=== PATIENT | female | born 1935 | race Caucasian/White ===

== ENCOUNTER 2019-05-18 15:42 | Emergency (ER) | payer MEDICARE ==
[2019-05-18] MEDS ORDERED: Catapres 0.1 MG PO ONE (16:50)
[2019-05-18] MEDS ORDERED: Catapres 0.1 MG ONE (16:53)
--- NOTE | 2019-05-18 16:53 | ERPHSYRPT ---
- History of Present Illness Time Seen by Provider: 05/18/19 16:42 Source: patient, family Exam Limitations: no limitations Patient Subjective Stated Complaint: STATES BEGAN HAVING HIGH BLOOD PRESSURE THIS WEEK. WAS STARTED ON [place] YESTERDAY. STATES IS STILL ELEVATED. ALSO HAVING WEAK FEELING IN BOTH ARMS. Triage Nursing Assessment: AMUBLATED TO ROOM PER SELF. SKIN W/D, COLOR NORMAL, RESP EASY. DENIES ANY DIZZINESS OR HEADACHE. HEATH. A/O TIMES FOUR. CLAUDIO WITHOUT DIFFICULTY. Physician History: 83 years old female presented in the ER with chief complaint of uncontrolled hypertension. Patient reports having high blood pressure for one week and yesterday was started on losartan 25 mg and today her blood pressure was still in the 160s. Patient reports prior to arrival she was having some funny feeling in her both arms until she arrived in the ER and it does improve. She denies any chest pain palpitations or shortness of breath. Denies any headache numbness tingling or focal weakness. No blurry vision. Denies any issues with balance. Timing/Duration: today, constant, gradual onset, improved Severity: mild Modifying Factors: Improves With: nothing Associated Symptoms: denies symptoms Allergies/Adverse Reactions: No Known Drug Allergies Allergy (Unverified 05/18/19 16:16) Home Medications: Losartan Potassium [Cozaar] 25 mg PO DAILY 05/18/19 [History] Hx Tetanus, Diphtheria Vaccination/Date Given: No Hx Influenza Vaccination/Date Given: No Hx Pneumococcal Vaccination/Date Given: No - Review of Systems Constitutional: No Symptoms Eyes: No Symptoms Ears, Nose, & Throat: No Symptoms Respiratory: No Symptoms Cardiac: No Symptoms Abdominal/Gastrointestinal: No Symptoms Genitourinary Symptoms: No Symptoms Musculoskeletal: No Symptoms Skin: No Symptoms Neurological: No Symptoms Psychological: No Symptoms Endocrine: No Symptoms Hematologic/Lymphatic: No Symptoms Immunological/Allergic: No Symptoms - Past Medical History Pertinent Past Medical History: Yes Cardiac History: Hypertension - Past Surgical History Past Surgical History: Yes Musculoskeletal: Orthopedic Surgery Other Surgical History: ANKLE - Social History Smoking Status: Never smoker Exposure to second hand smoke: No Drug Use: none Patient Lives Alone: No - Female History Hx Now: No - Nursing Vital Signs Nursing Vital Signs: Initial Vital Signs Temperature 97.8 F 05/18/19 16:04 Pulse Rate 94 H 05/18/19 16:04 Respiratory Rate 18 05/18/19 16:04 Blood Pressure 191/102 05/18/19 16:04 O2 Sat by Pulse Oximetry 97 05/18/19 16:04 Pain Scale Pain Intensity 0 - Physical Exam General Appearance: no apparent distress Eye Exam: PERRL/EOMI, eyes nml inspection Ears, Nose, Throat Exam: normal ENT inspection, TMs normal, pharynx normal Neck Exam: normal inspection, non-tender, supple, full range of motion Respiratory Exam: normal breath sounds, lungs clear, respiratory distress Cardiovascular Exam: regular rate/rhythm, normal heart sounds, normal peripheral pulses Gastrointestinal/Abdomen Exam: soft, normal bowel sounds, No distention Extremity Exam: normal inspection Neurologic Exam: alert, oriented x 3, cooperative, 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, normal mood/affect Skin Exam: normal color, warm SpO2 Interpretation: normal SpO2: 97 O2 Delivery: Room Air - Course Nursing assessment & vital signs reviewed: Yes EKG Interpreted by Me: RATE ([id number]), Sinus Rhythm, NORMAL AXIS, NORMAL INTERVALS, NORMAL QRS, Q-wave (inf leads) Ordered Tests: Active Orders 24 hr Category Date Time Status Soap Chipper STAT Care 05/18/19 16:49 Active EKG-ER Only STAT Care 05/18/19 16:48 Active CHEST 1 VIEW (PORTABLE) Stat Exams 05/18/19 16:48 Taken CBC W DIFF Stat Lab 05/18/19 17:00 Completed CMP Stat Lab 05/18/19 17:00 Completed TROPONIN Q3H Lab 05/18/19 17:00 Completed TROPONIN Q3H Lab 05/18/19 20:00 Ordered TROPONIN Q3H Lab 05/18/19 23:00 Ordered TROPONIN Q3H Lab 05/19/19 02:00 Ordered TROPONIN Q3H Lab 05/19/19 05:00 Ordered UA W/RFX UR CULTURE Stat Lab 05/18/19 17:02 Completed Medication Summary Discontinued Medications Generic Name Dose Route Start Last Admin Trade Name Freq PRN Reason Stop Dose Admin Clonidine 0.1 mg 05/18/19 16:50 05/18/19 16:56 Catapres 0.1 Mg PO 05/18/19 16:51 0.1 mg STAT ONE Administration Clonidine Confirm 05/18/19 16:53 Catapres 0.1 Mg Administered 05/18/19 16:54 Dose 0.1 mg .ROUTE .STK-MED ONE Lab/Rad Data: Laboratory Result Diagrams 05/18/19 17:00 05/18/19 17:00 Laboratory Results 05/18/19 05/18/19 05/18/19 Range/Units 17:02 17:00 17:00 WBC (4.0-10.5) K/mm3 RBC (4.1-5.4) M/mm3 Hgb (12.0-16.0) gm/dl Hct (35-47) % MCV (78-100) fl MCH (26-32) pg MCHC (32-36) g/dl RDW (11.5-14.0) % Plt Count (150-450) K/mm3 MPV (7.5-11.0) fl Gran % (36.0-66.0) % Eos # (Auto) (0-0.5) Absolute Lymphs (auto) (1.0-4.6) Absolute Monos (auto) (0.0-1.3) Lymphocytes % (24.0-44.0) % Monocytes % (0.0-12.0) % Eosinophils % (0.00-5.0) % Basophils % (0.0-0.4) % Absolute Granulocytes (1.4-6.9) Basophils # (0-0.4) Sodium 140 (137-145) mmol/L Potassium 4.0 (3.5-5.1) mmol/L Chloride 104 (98-107) mmol/L Carbon Dioxide 27 (22-30) mmol/L Anion Gap 13.0 (5-15) MEQ/L BUN 18 H (7-17) mg/dL Creatinine 0.77 (0.52-1.04) mg/dL Estimated GFR > 60.0 ML/MIN Glucose 104 (74-106) mg/dL Calcium 9.6 (8.4-10.2) mg/dL Total Bilirubin 0.50 (0.2-1.3) mg/dL AST 26 (14-36) U/L ALT 12 (0-35) U/L Alkaline Phosphatase 97 (38-126) U/L Troponin I < 0.012 (0.000-0.034) ng/mL Serum Total Protein 7.7 (6.3-8.2) g/dL Albumin 4.3 (3.5-5.0) g/dL Urine Color STRAW (YELLOW) Urine Appearance CLEAR (CLEAR) Urine pH 7.0 (5-6) Ur Specific [place] 1.005 (1.005-1.025) Urine Protein NEGATIVE (Negative) Urine Ketones NEGATIVE (NEGATIVE) Urine Blood NEGATIVE (0-5) Zach/ul Urine Nitrite NEGATIVE (NEGATIVE) Urine Bilirubin NEGATIVE (NEGATIVE) Urine Urobilinogen NEGATIVE (0-1) mg/dL Ur Leukocyte Esterase SMALL (NEGATIVE) Urine WBC (Auto) 3-5 (0-5) /HPF Urine RBC (Auto) 0-2 (0-2) /HPF U Epithel Cells (Auto) RARE (FEW) /HPF Urine Bacteria (Auto) NONE (NEGATIVE) /HPF Urine Mucus (Auto) SLIGHT (NEGATIVE) /HPF Urine Culture Reflexed NO (NO) Urine Glucose NEGATIVE (NEGATIVE) mg/dL 05/18/19 Range/Units 17:00 WBC 5.6 (4.0-10.5) K/mm3 RBC 4.66 (4.1-5.4) M/mm3 Hgb 13.9 (12.0-16.0) gm/dl Hct 41.3 (35-47) % MCV 88.6 (78-100) fl MCH 29.8 (26-32) pg MCHC 33.7 (32-36) g/dl RDW 13.5 (11.5-14.0) % Plt Count 256 (150-450) K/mm3 MPV 9.5 (7.5-11.0) fl Gran % 63.4 (36.0-66.0) % Eos # (Auto) 0.05 (0-0.5) Absolute Lymphs (auto) 1.55 (1.0-4.6) Absolute Monos (auto) 0.43 (0.0-1.3) Lymphocytes % 27.6 (24.0-44.0) % Monocytes % 7.7 (0.0-12.0) % Eosinophils % 0.9 (0.00-5.0) % Basophils % 0.4 (0.0-0.4) % Absolute Granulocytes 3.56 (1.4-6.9) Basophils # 0.02 (0-0.4) Sodium (137-145) mmol/L Potassium (3.5-5.1) mmol/L Chloride (98-107) mmol/L Carbon Dioxide (22-30) mmol/L Anion Gap (5-15) MEQ/L BUN (7-17) mg/dL Creatinine (0.52-1.04) mg/dL Estimated GFR ML/MIN Glucose (74-106) mg/dL Calcium (8.4-10.2) mg/dL Total Bilirubin (0.2-1.3) mg/dL AST (14-36) U/L ALT (0-35) U/L Alkaline Phosphatase (38-126) U/L Troponin I (0.000-0.034) ng/mL Serum Total Protein (6.3-8.2) g/dL Albumin (3.5-5.0) g/dL Urine Color (YELLOW) Urine Appearance (CLEAR) Urine pH (5-6) Ur Specific [place] (1.005-1.025) Urine Protein (Negative) Urine Ketones (NEGATIVE) Urine Blood (0-5) Zach/ul Urine Nitrite (NEGATIVE) Urine Bilirubin (NEGATIVE) Urine Urobilinogen (0-1) mg/dL Ur Leukocyte Esterase (NEGATIVE) Urine WBC (Auto) (0-5) /HPF Urine RBC (Auto) (0-2) /HPF U Epithel Cells (Auto) (FEW) /HPF Urine Bacteria (Auto) (NEGATIVE) /HPF Urine Mucus (Auto) (NEGATIVE) /HPF Urine Culture Reflexed (NO) Urine Glucose (NEGATIVE) mg/dL - Progress Progress: improved, re-examined Progress Note: 83 years old is evaluated in the ER for elevated blood pressure and funny feeling in her both arms which was improved prior to arrival in the ER. She is given 0.1 mg oral clonidine and her blood pressure is improved. She does not have any chest pain palpitations or shortness of breath. Negative neuro exam. Chest x-ray did not show any acute findings. EKG did not show any acute ischemic changes and negative troponins. Unremarkable chemistries. Unremarkable urine. Patient feeling better. I have advised her to continue with the same dose of losartan which she was started yesterday as it is too early to change or increase the dose. I would give her clonidine to take as needed Discussed with patient about symptoms/signs of worsening needed return to ER but she seemed understanding. Stable for discharge. 05/18/19 19:14 05/18/19 19:20 Counseled pt/family regarding: lab results, diagnosis, need for follow-up (a) - Departure Departure Disposition: Home Clinical Impression: Hypertension, uncontrolled Condition: Good Critical Care Time: No Referrals: FIDEL MARTINEZ MD [Primary Care Provider] - Follow Up with PCP/3 days Instructions: Malignant Hypertension (DC) Additional Instructions: continue with current meds for HTN. regular monitoring and keep a log and outpatient follow up with PCP. Return to ER for any worsening BP/cHEST PAIN / PALPITATIONS OR SHORTNESS OF BREATH.take clonidine only as needed if blood pressure is more than 170 systolic. Do not take more than once in 12 hours. Prescriptions: Clonidine HCl 0.1 mg [Catapres 0.1 MG] 0.1 mg PO Q12H PRN PRN 10 Days #10 tablet PRN Reason: Hypertension
[2019-05-18 17:15] LABS: Absolute Neutrophil Ct (ANC) 3.56 (1.4-6.9); BASOPHIL % 0.4 % (0.0-0.4); Basophil (Absolute #) 0.02 (0-0.4); Eosinophil % 0.9 % (0.00-5.0); Eosinophil (Absolute #) 0.05 (0-0.5); Hematocrit 41.3 % (35-47); Hemoglobin 13.9 gm/dl (12.0-16.0); Lymphocyte (Absolute #) 1.55 (1.0-4.6); Lymphocytes % 27.6 % (24.0-44.0); Mean Cell Volume 88.6 fl (78-100); Mean Corpuscular Hemoglobin 29.8 pg (26-32); Mean Corpuscular Hgb Concent. 33.7 g/dl (32-36); Mean Platelet Volume 9.5 fl (7.5-11.0); Monocyte (Absolute #) 0.43 (0.0-1.3); Monocytes % 7.7 % (0.0-12.0); Neutrophil % 63.4 % (36.0-66.0); Platelet Count 256 K/mm3 (150-450); Red Blood Count 4.66 M/mm3 (4.1-5.4); Red Cell Distribution Width 13.5 % (11.5-14.0); White Blood Count 5.6 K/mm3 (4.0-10.5)
[2019-05-18 17:35] LABS: Appearance CLEAR (CLEAR); Bilirubin NEGATIVE (NEGATIVE); Blood NEGATIVE Ery/ul (0-5); Epithelial Cells RARE /HPF (FEW); Glucose NEGATIVE (NEGATIVE); Ketones NEGATIVE (NEGATIVE); Leukocyte Esterase SMALL (NEGATIVE); Mucus SLIGHT /HPF (NEGATIVE); Nitrite NEGATIVE (NEGATIVE); Protein,Urine Dip NEGATIVE (Negative); RBC 0-2 /HPF (0-2); Specific Gravity 1.005 (1.005-1.025); Urobilinogen NEGATIVE mg/dL (0-1)
[2019-05-18 17:39] LABS: ALBUMIN 4.3 g/dL (3.5-5.0); ALKALINE PHOSPHATASE 97 U/L (38-126); BLOOD UREA NITROGEN 18 mg/dL (7-17); CHLORIDE 104 mmol/L (98-107); Calcium 9.6 mg/dL (8.4-10.2); Carbon Dioxide 27 mmol/L (22-30); Creatinine 1 0.77 mg/dL (0.52-1.04); Glucose 104 mg/dL (74-106); SGOT/AST 26 U/L (14-36); SGPT/ALT 12 U/L (0-35); SODIUM 140 mmol/L (137-145); Total Protein 7.7 g/dL (6.3-8.2)
[2019-05-18 19:01] VITALS: BP 151/90; PULSE 88
[2019-05-18 19:14] VITALS: O2SAT 97
--- NOTE | 2019-05-18 22:46 | XRAY ---
Indication: Uncontrolled hypertension. Comparison: None Portable chest demonstrates minimal left base fibrosis/scarring. No focal infiltrate, consolidation, or large effusion. Heart is not enlarged. Bony thorax intact with mild osteopenia and degenerative changes. Impression: Nonacute chest with chronic features.
== END 2019-05-18 19:42 | disposition home or self-care (01) ==
LOC: ED 15:42
DX: I10 Essential (primary) hypertension (principal)
CPT/HCPCS: 36415; 71045; 80053; 81001; 84484; 85025; 93005; 93041; 99284; A9270-GY

== ENCOUNTER 2019-11-26 08:48 | Day surgery (SDC) | payer MEDICARE ==
[2019-11-26] MEDS ORDERED: Lactated Ringers 1,000 ML IV SCH (09:00)
[2019-11-26] MEDS ORDERED: MEFOXIN 2 GM PREMIX** 2 GM/50 ML ML IV SCH (09:00)
[2019-11-26] MEDS ORDERED: Sensorcaine 0.25% 10 ML ONE ×2 (10:33→12:32)
[2019-11-26] MEDS ORDERED: Lactated Ringers 1,000 ML IV ONE (10:33)
[2019-11-26] MEDS ORDERED: DIPRIVAN 200 MG/20 ML IV ONE (10:46)
[2019-11-26] MEDS ORDERED: Xylocaine-Mpf 2% 5 Ml Vial ONE (10:46)
[2019-11-26] MEDS ORDERED: TORAdol 30 mg Injection ONE (10:46)
[2019-11-26] MEDS ORDERED: SUBLIMAZE 100 MCG/2 ML ONE (10:46)
[2019-11-26] MEDS ORDERED: BRIDION 200MG/2ML IV ONE (10:46)
[2019-11-26] MEDS ORDERED: Zemuron 100 MG/10 ML ONE (10:46)
[2019-11-26] MEDS ORDERED: Decadron 4 MG INJ ONE (10:46)
[2019-11-26] MEDS ORDERED: Zofran 4 MG/2 ML VIAL ONE (10:46)
[2019-11-26 12:51] VITALS: O2SAT 95
[2019-11-26 13:36] VITALS: BP 181/88; PULSE 82
--- NOTE | 2019-11-27 08:27 | OP ---
SURGERY DATE/TIME: 11/26/2019 1101 PREOPERATIVE DIAGNOSIS: Chronic cholecystitis with biliary dyskinesia. POSTOPERATIVE DIAGNOSES: Chronic cholecystitis with biliary dyskinesia. PROCEDURE: Laparoscopic cholecystectomy. SURGEON: Cody Menon M.D. ANESTHESIA: General. ESTIMATED BLOOD LOSS: 50. CONDITION: Patient condition stable. COMPLICATIONS: None. HISTORY: An 84 year-old female with history of right upper quadrant abdominal pain. Work up revealed a decreased ejection fraction on HIDA scan. Risk of infection, bleeding, injury to nearby structure, bile leak, hernia were discussed and elected to proceed. FINDINGS: Critical view obtained. DESCRIPTION OF PROCEDURE: The patient was brought to the operating room. General anesthesia was induced. She was placed supine with arms out. SCD's were applied on. She was routinely prepped and draped. Time out was performed. A preoperative antibiotic was given. Veress needle was inserted in left upper quadrant. Opening pressure was 4. Pneumoperitoneum was established. A 5 mm Optiview trocar was placed in the left upper quadrant. Abdomen was surveyed. There was no apparent injury from Veress insertion. An 11 mm trocar was placed infraumbilically. Two additional 5 mm trocars were placed in the right upper quadrant. Lidocaine was injected in all of the port sites. The gallbladder was routinely retracted. Cystic duct and cystic artery were dissected out with a combination of [place], [place] dissection, blunt dissection. Critical view was easily obtained. The cystic artery was taken two down and one up with a 5 mm metal clip hvac/r instructor. Cystic duct was taken two down and one up with a 5 mm clip hvac/r instructor. Both were divided. Gallbladder is taken off the liver bed. There was a little nuisance bleeding coming from the liver bed peripherally in the liver this was controlled with cautery. The gallbladder did get a small hole in it and bile was suctioned out. There was no spillage of stones. Gallbladder is placed in specimen bag and then removed. Right upper quadrant was irrigated and suctioned. There was good hemostasis. Clips were in good position. A SURGICEL was placed at the peripheral liver area but there was good hemostasis. The 11 trocar was closed with 0 Vicryl suture passer. Right upper quadrant ports were removed under direct visualization. Left upper quadrant ports were used for desufflation and then removed. Skin was closed with 4-0 Vicryl. All counts were correct. Steri-Strips and sterile dressings were applied. The patient tolerated the procedure well. She was extubated and taken to recovery in stable condition.
== END 2019-11-26 13:40 | disposition home or self-care (01) ==
LOC: SDC 08:48
PROVIDERS: ATTEND Surgery
DX: K81.1 Chronic cholecystitis (principal); K82.8 Other specified diseases of gallbladder; Z79.899 Other long term (current) drug therapy
CPT/HCPCS: 88304; 99100; J0694; J1100; J1885; J2405; J2704; J3010

== ENCOUNTER 2023-08-31 17:13 | Emergency (ER) | payer MEDICARE ==
[2023-08-31 17:44] VITALS: TEMP 97.6
--- NOTE | 2023-08-31 18:33 | ERPHSYRPT ---
- History of Present Illness Time Seen by Provider: 08/31/23 18:18 Source: patient Exam Limitations: no limitations Patient Subjective Stated Complaint: C/O HTN today. Patient went to the [facility] and was advised to go to the ER. Patient denies any pain. Triage Nursing Assessment: Patient is alert and oriented. No SOB. Skin tone normal. Ambulating without difficulties. B/P 214/127. Physician History: Pt states about 2.5 hours ago she checked her blood pressure and it was elevated, went to [facility] who sent her to ER for evaluation & treatment. Pt c/o nausea and a mild retro-orbital headache for the past 2.5 hours; denies chest pain, shortness of air, abdominal pain. Allergies/Adverse Reactions: No Known Drug Allergies Allergy (Verified 08/31/23 17:35) Hx Tetanus, Diphtheria Vaccination/Date Given: Yes Hx Influenza Vaccination/Date Given: No Hx Pneumococcal Vaccination/Date Given: No Immunizations Up to Date: Yes Travel Risk - International Travel Have you traveled outside of the country in past 3 weeks: No - Emerging Infectious Disease Are you exhibiting symptoms associated with any current EIDs: No - Review of Systems Constitutional: No Fever Respiratory: No Cough, No Dyspnea Cardiac: No Chest Pain Abdominal/Gastrointestinal: Nausea, No Abdominal Pain, No Vomiting Neurological: Headache, No Focal Weakness, No Sensory Changes - Past Medical History Pertinent Past Medical History: Yes Neurological History: No Pertinent History ENT History: Cataracts Cardiac History: Hypertension, Other Respiratory History: No Pertinent History Musculoskeletal History: No Pertinent History GI Medical History: GERD, Gallbladder Disease History: No Pertinent History Psycho-Social History: No Pertinent History Female Reproductive Disorders: No Pertinent History Other Medical History: States had HTN a long time ago that resolved on it's own after taking B/P medications made her sick - Past Surgical History Past Surgical History: Yes Neuro Surgical History: No Pertinent History Cardiac: No Pertinent History Respiratory: No Pertinent History Gastrointestinal: No Pertinent History Genitourinary: No Pertinent History Musculoskeletal: No Pertinent History, Orthopedic Surgery Female Surgical History: Tubal Ligation Other Surgical History: right ankle screws placed, rio. tear duct tube placed, rio. cataract removal with lens implants - Social History Smoking Status: Never smoker Exposure to second hand smoke: No Drug Use: none Patient Lives Alone: No - Nursing Vital Signs Nursing Vital Signs: Initial Vital Signs Temperature 97.6 F 08/31/23 17:36 Pulse Rate 88 08/31/23 17:36 Respiratory Rate 23 08/31/23 17:36 Blood Pressure 214/127 08/31/23 17:36 O2 Sat by Pulse Oximetry 97 08/31/23 17:36 Pain Scale Pain Intensity 0 - Physical Exam General Appearance: alert Eye Exam: PERRL/EOMI Ears, Nose, Throat Exam: TMs normal, pharynx normal Neck Exam: normal inspection Respiratory Exam: lungs clear Cardiovascular Exam: normal heart sounds Gastrointestinal/Abdomen Exam: soft, normal bowel sounds Back Exam: normal inspection Extremity Exam: No pedal edema Neurologic Exam: alert, cooperative Skin Exam: warm, dry SpO2 Interpretation: normal SpO2: 97 O2 Delivery: Room Air - Course Nursing assessment & vital signs reviewed: Yes EKG Interpreted by Me: RATE (82), Sinus Rhythm, NORMAL AXIS, Other (QTc = 447) Ordered Tests: Active Orders 24 hr Category Date Time Status EKG-ER Only STAT Care 08/31/23 18:28 Active IV Insertion STAT Care 08/31/23 18:28 Active AMYLASE Stat Lab 08/31/23 18:50 Completed CBC W DIFF Stat Lab 08/31/23 18:50 Completed CMP Stat Lab 08/31/23 18:50 Completed LIPASE Stat Lab 08/31/23 18:50 Completed MAGNESIUM Stat Lab 08/31/23 18:50 Completed TROPONIN Q4H Lab 08/31/23 18:50 Completed TROPONIN Q4H Lab 08/31/23 22:30 Ordered TROPONIN Q4H Lab 09/01/23 02:30 Ordered UA W/RFX UR CULTURE Stat Lab 08/31/23 18:32 Completed Medication Summary Generic Name Dose Route Start Last Admin Trade Name Freq PRN Reason Stop Dose Admin Sodium Chloride 1,000 mls @ 100 mls/hr 08/31/23 18:30 08/31/23 18:55 Sodium Chloride 0.9% 1000 Ml IV 09/30/23 18:29 100 mls/hr .Q10H RUFINO Administration Discontinued Medications Generic Name Dose Route Start Last Admin Trade Name Freq PRN Reason Stop Dose Admin Labetalol HCl 10 mg 08/31/23 18:29 08/31/23 18:57 Labetalol Hcl 20 Mg/4 Ml Disp.Syringe IV 08/31/23 18:30 10 mg STAT ONE Administration Labetalol HCl Confirm 08/31/23 18:53 Labetalol Hcl 20 Mg/4 Ml Disp.Syringe Administered 08/31/23 18:54 Dose 20 mg IV .STK-MED ONE Labetalol HCl 10 mg 08/31/23 19:32 08/31/23 19:35 Labetalol Hcl 20 Mg/4 Ml Disp.Syringe IV 08/31/23 19:33 10 mg STAT ONE Administration Labetalol HCl Confirm 08/31/23 19:35 Labetalol Hcl 20 Mg/4 Ml Disp.Syringe Administered 08/31/23 19:36 Dose 20 mg IV .STK-MED ONE Labetalol HCl 20 mg 08/31/23 20:14 Labetalol Hcl 20 Mg/4 Ml Disp.Syringe IV 08/31/23 20:15 STAT ONE Lab/Rad Data: Laboratory Result Diagrams 08/31/23 18:50 08/31/23 18:50 Laboratory Results 08/31/23 08/31/23 08/31/23 Range/Units 18:50 18:50 18:50 WBC 5.9 (4.0-10.5) x10^3/uL RBC 4.62 (4.1-5.4) x10^6/uL Hgb 13.2 (12.0-16.0) g/dL Hct 40.7 (35-47) % MCV 88.1 (78-100) fL MCH 28.6 (26-32) pg MCHC 32.4 (32-36) g/dL RDW 13.2 (11.5-14.0) % Plt Count 238 (150-450) x10^3/uL MPV 9.3 (7.5-11.0) fL Gran % 60.3 (36.0-66.0) % Immature Gran % (Auto) 0.2 (0.00-0.4) % Nucleat RBC Rel Count 0.0 (0.00-0.1) % Eos # (Auto) 0.11 (0-0.5) x10^3/uL Immature Gran # (Auto) 0.01 (0.00-0.03) x10^3u/L Absolute Lymphs (auto) 1.75 (1.0-4.6) x10^3/uL Absolute Monos (auto) 0.45 (0.0-1.3) x10^3/uL Absolute Nucleated RBC 0.00 (0.00-0.01) x10^3u/L Lymphocytes % 29.7 (24.0-44.0) % Monocytes % 7.6 (0.0-12.0) % Eosinophils % 1.9 (0.00-5.0) % Basophils % 0.3 (0.0-0.4) % Absolute Granulocytes 3.56 (1.4-6.9) x10^3/uL Basophils # 0.02 (0-0.4) x10^3/uL Sodium 140 (135-145) mmol/L Potassium 4.3 (3.5-5.1) mmol/L Chloride 107 (98-107) mmol/L Carbon Dioxide 26 (22-30) mmol/L Anion Gap 11.2 (5-15) MEQ/L BUN 16 (7-17) mg/dL Creatinine 0.89 (0.52-1.04) mg/dL Estimated GFR 63.1 ML/MIN Glucose 102 (74-106) mg/dL Calcium 9.4 (8.4-10.2) mg/dL Magnesium 2.2 (1.6-2.3) mg/dL Total Bilirubin 0.50 (0.2-1.3) mg/dL AST 25 (14-36) U/L ALT 15 (0-35) U/L Alkaline Phosphatase 100 (38-126) U/L Troponin I < 0.012 (0.000-0.033) ng/mL Serum Total Protein 7.3 (6.3-8.2) g/dL Albumin 4.4 (3.5-5.0) g/dL Amylase 74 (30-110) U/L Lipase 225 (23-300) U/L Urine Color (Yellow) Urine Appearance (Clear) Urine pH (4.6-8.0) Ur Specific [place] (1.005-1.030) Urine Protein (Negative) Urine Glucose (UA) (Negative) mg/dL Urine Ketones (Negative) Urine Blood (Negative) Urine Nitrite (Negative) Urine Bilirubin (Negative) Urine Urobilinogen (0.2) mg/dL Ur Leukocyte Esterase (Negative) U Hyaline Cast (Auto) (0-2) /LPF Urine Microscopic RBC (0-5) /HPF Urine Microscopic WBC (0-5) /HPF Ur Epithelial Cells (None Seen) /HPF Urine Bacteria (None Seen) /HPF Urine Culture Reflexed (NO) 08/31/23 Range/Units 18:32 WBC (4.0-10.5) x10^3/uL RBC (4.1-5.4) x10^6/uL Hgb (12.0-16.0) g/dL Hct (35-47) % MCV (78-100) fL MCH (26-32) pg MCHC (32-36) g/dL RDW (11.5-14.0) % Plt Count (150-450) x10^3/uL MPV (7.5-11.0) fL Gran % (36.0-66.0) % Immature Gran % (Auto) (0.00-0.4) % Nucleat RBC Rel Count (0.00-0.1) % Eos # (Auto) (0-0.5) x10^3/uL Immature Gran # (Auto) (0.00-0.03) x10^3u/L Absolute Lymphs (auto) (1.0-4.6) x10^3/uL Absolute Monos (auto) (0.0-1.3) x10^3/uL Absolute Nucleated RBC (0.00-0.01) x10^3u/L Lymphocytes % (24.0-44.0) % Monocytes % (0.0-12.0) % Eosinophils % (0.00-5.0) % Basophils % (0.0-0.4) % Absolute Granulocytes (1.4-6.9) x10^3/uL Basophils # (0-0.4) x10^3/uL Sodium (135-145) mmol/L Potassium (3.5-5.1) mmol/L Chloride (98-107) mmol/L Carbon Dioxide (22-30) mmol/L Anion Gap (5-15) MEQ/L BUN (7-17) mg/dL Creatinine (0.52-1.04) mg/dL Estimated GFR ML/MIN Glucose (74-106) mg/dL Calcium (8.4-10.2) mg/dL Magnesium (1.6-2.3) mg/dL Total Bilirubin (0.2-1.3) mg/dL AST (14-36) U/L ALT (0-35) U/L Alkaline Phosphatase (38-126) U/L Troponin I (0.000-0.033) ng/mL Serum Total Protein (6.3-8.2) g/dL Albumin (3.5-5.0) g/dL Amylase (30-110) U/L Lipase (23-300) U/L Urine Color Yellow (Yellow) Urine Appearance Clear (Clear) Urine pH 7.0 (4.6-8.0) Ur Specific [place] 1.010 (1.005-1.030) Urine Protein Negative (Negative) Urine Glucose (UA) Negative (Negative) mg/dL Urine Ketones Negative (Negative) Urine Blood Negative (Negative) Urine Nitrite Negative (Negative) Urine Bilirubin Negative (Negative) Urine Urobilinogen 0.2 (0.2) mg/dL Ur Leukocyte Esterase Trace A (Negative) U Hyaline Cast (Auto) NONE SEEN (0-2) /LPF Urine Microscopic RBC 0-2 (0-5) /HPF Urine Microscopic WBC 0-2 (0-5) /HPF Ur Epithelial Cells Few (None Seen) /HPF Urine Bacteria Rare A (None Seen) /HPF Urine Culture Reflexed NO (NO) - Progress Progress: improved Progress Note: 08/31/23 19:28 BP = 159/71 @ 1926. Pt refused CXR & did not want a CT-Head. Counseled pt/family regarding: lab results, diagnosis, need for follow-up Medical Desision Making - Diagnostic Testing Diagnostic test were ordered, analyzed, and reviewed by me: Yes Radiological Interpretation: Interpreted by me - Departure Departure Disposition: Home Clinical Impression: HTN (hypertension) Condition: Stable Critical Care Time: No Referrals: KAMILLA WALSH NP [Primary Care Provider] - Follow up/PCP as directed Instructions: Malignant Hypertension (DC) Additional Instructions: Follow up with private doctor tomorrow. Prescriptions: Enalapril Maleate [Vasotec] 5 mg PO DAILY #30 tablet
[2023-08-31 18:44] LABS: Appearance Clear (Clear); Bacteria Rare /HPF (None Seen); Bilirubin Negative (Negative); Blood Negative (Negative); Epithelial Cells Few /HPF (None Seen); Glucose, Urine Negative (Negative); Hyaline Casts NONE SEEN /LPF (0-2); Ketones Negative (Negative); Leukocyte Esterase Trace (Negative); Nitrite Negative (Negative); Protein,Urine Dip Negative (Negative); RBC 0-2 /HPF (0-5); Urobilinogen 0.2 mg/dL (0.2); WBC 0-2 /HPF (0-5)
[2023-08-31 18:45] LABS: ADD URINE CULTURE? NO (NO)
[2023-08-31] MEDS ORDERED: Sodium Chloride 0.9% 1000 ML 1,000 ML ONE (18:53)
[2023-08-31] MEDS ORDERED: TRANDATE 20 MG/4 ML SYRINGE IV ONE ×2 (18:53→19:35)
[2023-08-31] MEDS: Sodium Chloride 0.9% 1000 ML 1,000 ML IV SCH (18:55)
[2023-08-31 18:56] LABS: Absolute Neutrophil Ct (ANC) 3.56 x10^3/uL (1.4-6.9); BASOPHIL % 0.3 % (0.0-0.4); Basophil (Absolute #) 0.02 x10^3/uL (0-0.4); Eosinophil % 1.9 % (0.00-5.0); Eosinophil (Absolute #) 0.11 x10^3/uL (0-0.5); Hematocrit 40.7 % (35-47); Hemoglobin 13.2 g/dL (12.0-16.0); IMMATURE GRAN # 0.01 x10^3u/L (0.00-0.03); IMMATURE GRAN % 0.2 % (0.00-0.4); Lymphocyte (Absolute #) 1.75 x10^3/uL (1.0-4.6); Lymphocytes % 29.7 % (24.0-44.0); Mean Cell Volume 88.1 fL (78-100); Mean Corpuscular Hemoglobin 28.6 pg (26-32); Mean Corpuscular Hgb Concent. 32.4 g/dL (32-36); Mean Platelet Volume 9.3 fL (7.5-11.0); Monocyte (Absolute #) 0.45 x10^3/uL (0.0-1.3); Monocytes % 7.6 % (0.0-12.0); Neutrophil % 60.3 % (36.0-66.0); Platelet Count 238 x10^3/uL (150-450); Red Blood Count 4.62 x10^6/uL (4.1-5.4); Red Cell Distribution Width 13.2 % (11.5-14.0); White Blood Count 5.9 x10^3/uL (4.0-10.5)
[2023-08-31] MEDS: TRANDATE 20 MG/4 ML SYRINGE IV ONE ×3 (18:57→21:02)
[2023-08-31 19:10] LABS: ALBUMIN 4.4 g/dL (3.5-5.0); ANION GAP 11.2 MEQ/L (5-15); BILIRUBIN,TOTAL 0.5 mg/dL (0.2-1.3); Calcium 9.4 mg/dL (8.4-10.2); Creatinine 1 0.89 mg/dL (0.52-1.04); EST GLOMERULAR FILTRATION RATE 63.1 ML/MIN; MAGNESIUM 2.2 mg/dL (1.6-2.3); Potassium 4.3 mmol/L (3.5-5.1); Total Protein 7.3 g/dL (6.3-8.2)
[2023-08-31 19:29] VITALS: RESP 14
[2023-08-31 21:02] VITALS: O2SAT 97
[2023-08-31 21:15] VITALS: BP 159/79; PULSE 71
== END 2023-08-31 21:30 | disposition home or self-care (01) ==
LOC: ED 17:13
DX: I10 Essential (primary) hypertension (principal); R11.0 Nausea; R51.9 Headache, unspecified
CPT/HCPCS: 36000; 36415; 80053; 81001; 82150; 83690; 83735; 84484; 85025; 93005; 96374; 99284

== ENCOUNTER 2023-09-03 18:44 | Emergency (ER) | payer MEDICARE ==
[2023-09-03 18:55] VITALS: TEMP 97.2
--- NOTE | 2023-09-03 19:08 | ERPHSYRPT ---
- History of Present Illness Time Seen by Provider: 09/03/23 19:07 Source: patient Exam Limitations: no limitations Patient Subjective Stated Complaint: Pt states "I have been fighting this for a couple weeks and they put me on this blood pressure pill and my pressure went up today so I took an extra pill at 5 pm and it is not helping." Triage Nursing Assessment: Pt presented alert and oriented X 3, skin pwd. PT ambulates with an upright steady gait. PT resting comfortably on the bed. Physician History: 87yo F with a recent onset of high blood pressure. She reports that four years ago, she experienced a similar episode of high blood pressure but was unable to tolerate antihypertensive medications due to allergies. Since then, she has not been on any medications. Last week, she experienced floaters and a headache, which prompted her to check her blood pressure, revealing it to be significantly elevated. She received IV treatment to lower her blood pressure and was prescribed a small dose of Enalapril. Her blood pressure was controlled at home until this afternoon when she started feeling unwell and found her blood pressure to be high again. She took an additional dose of Enalapril, but it did not lower her blood pressure. She denies any chest pain, floaters, headache, or dizziness today. She reports good sleep and balance. She has no known history of diabetes, cholesterol issues, or thyroid problems. Timing/Duration: day(s) (3) Activities at Onset: rest Quality: other (na) Location: other (none) Chest Pain Radiation: no radiation Severity of Pain-Max: none Severity of Pain-Current: none Modifying Factors: Improves With: nothing Nitro Today/Relief: no nitro taken today Aspirin Treatment Today: no aspirin today Associated Symptoms: denies symptoms Allergies/Adverse Reactions: No Known Drug Allergies Allergy (Verified 08/31/23 17:35) Hx Tetanus, Diphtheria Vaccination/Date Given: Yes Hx Influenza Vaccination/Date Given: No Hx Pneumococcal Vaccination/Date Given: No Immunizations Up to Date: No Travel Risk - International Travel Have you traveled outside of the country in past 3 weeks: No - Emerging Infectious Disease Are you exhibiting symptoms associated with any current EIDs: No - Review of Systems All Other Systems: Reviewed and Negative - Past Medical History Pertinent Past Medical History: Yes Neurological History: No Pertinent History ENT History: Cataracts Cardiac History: Hypertension, Other Respiratory History: No Pertinent History Musculoskeletal History: No Pertinent History GI Medical History: GERD, Gallbladder Disease History: No Pertinent History Psycho-Social History: No Pertinent History Female Reproductive Disorders: No Pertinent History Other Medical History: States had HTN a long time ago that resolved on it's own after taking B/P medications made her sick - Past Surgical History Past Surgical History: Yes Neuro Surgical History: No Pertinent History Cardiac: No Pertinent History Respiratory: No Pertinent History Gastrointestinal: No Pertinent History Genitourinary: No Pertinent History Musculoskeletal: No Pertinent History, Orthopedic Surgery Female Surgical History: Tubal Ligation Other Surgical History: right ankle screws placed, rio. tear duct tube placed, rio. cataract removal with lens implants - Social History Smoking Status: Never smoker Exposure to second hand smoke: No Drug Use: none Patient Lives Alone: No - Nursing Vital Signs Nursing Vital Signs: Initial Vital Signs Temperature 97.2 F 09/03/23 18:48 Pulse Rate 110 H 09/03/23 18:48 Respiratory Rate 20 09/03/23 18:48 Blood Pressure 220/105 09/03/23 18:48 O2 Sat by Pulse Oximetry 95 09/03/23 18:48 Pain Scale Pain Intensity 0 - Physical Exam General Appearance: no apparent distress Eye Exam: PERRL/EOMI, eyes nml inspection Ears, Nose, Throat Exam: normal ENT inspection Neck Exam: normal inspection, supple, full range of motion Respiratory Exam: normal breath sounds, lungs clear, airway intact Cardiovascular Exam: regular rate/rhythm, normal heart sounds, normal peripheral pulses, capillary refill <2 sec, No edema Neurologic Exam: alert, oriented x 3, cooperative, dietary server II-XII nml as tested, normal mood/affect, nml cerebellar function, nml station & gait, sensation nml, No motor weakness, No facial droop, No slurred speech, No aphasia, No dysarthria Skin Exam: normal color, warm, dry, No rash SpO2 Interpretation: normal SpO2: 95 O2 Delivery: Room Air - Course Nursing assessment & vital signs reviewed: Yes EKG Interpreted by Me: RATE ([id number]), Sinus Rhythm, NORMAL AXIS, NORMAL INTERVALS, Other (ST segment depression in a downsloping pattern in leads V2, V3, V4, V5 and V6) Ordered Tests: Active Orders 24 hr Category Date Time Status Environmental Health Technologist STAT Care 09/03/23 19:21 Completed EKG-ER Only STAT Care 09/03/23 19:20 Completed CBC W DIFF Stat Lab 09/03/23 19:25 Completed CMP Stat Lab 09/03/23 19:25 Completed Lactic Acid Stat Lab 09/03/23 19:20 Completed MAGNESIUM Stat Lab 09/03/23 19:25 Completed TROPONIN Q3H Lab 09/03/23 19:10 Completed TSH [TSH, 3RD Generation] Stat Lab 09/03/23 20:56 Completed Medication Summary Discontinued Medications Generic Name Dose Route Start Last Admin Trade Name Freq PRN Reason Stop Dose Admin Chlorthalidone 25 mg 09/03/23 19:59 09/03/23 20:25 Chlorthalidone 25 Mg Tablet PO 09/03/23 20:00 Not Given ONCE ONE Enalaprilat 1.25 mg 09/03/23 19:20 09/03/23 19:34 Enalaprilat 2.5 Mg Injection IV 09/03/23 19:21 1.25 mg STAT ONE Administration Enalaprilat Confirm 09/03/23 19:32 Enalaprilat 2.5 Mg Injection Administered 09/03/23 19:33 Dose 2.5 mg IV .STK-MED ONE Furosemide 40 mg 09/03/23 19:20 09/03/23 19:36 Furosemide 40 Mg/4 Ml Vial IV 09/03/23 19:21 40 mg STAT ONE Administration Furosemide Confirm 09/03/23 19:32 Furosemide 40 Mg/4 Ml Vial Administered 09/03/23 19:33 Dose 40 mg .ROUTE .STK-MED ONE Hydrochlorothiazide 50 mg 09/03/23 20:20 09/03/23 20:33 Hydrochlorothiazide 25 Mg Tablet PO 09/03/23 20:21 50 mg ONCE ONE Administration Labetalol HCl 10 mg 09/03/23 19:59 Labetalol Hcl 100 Mg/20 Ml Mdv IV 10/03/23 19:58 PRN PRN HYPERTENSION Labetalol HCl Confirm 09/03/23 20:03 Labetalol Hcl 20 Mg/4 Ml Disp.Syringe Administered 09/03/23 20:04 Dose 20 mg IV .STK-MED ONE Labetalol HCl 10 mg 09/03/23 20:12 09/03/23 20:17 Labetalol Hcl 20 Mg/4 Ml Disp.Syringe IV 09/03/23 20:13 10 mg STAT ONE Administration Repeat EKG showed a rate of 78 sinus rhythm with normal axis. Lateral leads showed no ST segment elevation or depression on repeat and looks similar to EKG from 08/31/2023. Initial EKG was likely due to lead positioning. Lab/Rad Data: Laboratory Result Diagrams 09/03/23 19:25 09/03/23 19:25 Laboratory Results 09/03/23 09/03/23 09/03/23 Range/Units 20:56 19:25 19:25 WBC 5.1 (4.0-10.5) x10^3/uL RBC 4.58 (4.1-5.4) x10^6/uL Hgb 13.4 (12.0-16.0) g/dL Hct 40.4 (35-47) % MCV 88.2 (78-100) fL MCH 29.3 (26-32) pg MCHC 33.2 (32-36) g/dL RDW 13.3 (11.5-14.0) % Plt Count 266 (150-450) x10^3/uL MPV 9.9 (7.5-11.0) fL Gran % 45.5 (36.0-66.0) % Immature Gran % (Auto) 0.0 (0.00-0.4) % Nucleat RBC Rel Count 0.0 (0.00-0.1) % Eos # (Auto) 0.20 (0-0.5) x10^3/uL Immature Gran # (Auto) 0.00 (0.00-0.03) x10^3u/L Absolute Lymphs (auto) 2.08 (1.0-4.6) x10^3/uL Absolute Monos (auto) 0.49 (0.0-1.3) x10^3/uL Absolute Nucleated RBC 0.00 (0.00-0.01) x10^3u/L Lymphocytes % 40.5 (24.0-44.0) % Monocytes % 9.5 (0.0-12.0) % Eosinophils % 3.9 (0.00-5.0) % Basophils % 0.6 (0.0-0.4) % Absolute Granulocytes 2.34 (1.4-6.9) x10^3/uL Basophils # 0.03 (0-0.4) x10^3/uL Sodium 141 (135-145) mmol/L Potassium 4.5 (3.5-5.1) mmol/L Chloride 107 (98-107) mmol/L Carbon Dioxide 28 (22-30) mmol/L Anion Gap 11.3 (5-15) MEQ/L BUN 14 (7-17) mg/dL Creatinine 0.75 (0.52-1.04) mg/dL Estimated GFR 77.5 ML/MIN Glucose 107 H (74-106) mg/dL Lactic Acid (0.4-2.0) Calcium 9.3 (8.4-10.2) mg/dL Magnesium 2.2 (1.6-2.3) mg/dL Total Bilirubin 0.50 (0.2-1.3) mg/dL AST 29 (14-36) U/L ALT 14 (0-35) U/L Alkaline Phosphatase 100 (38-126) U/L Troponin I (0.000-0.033) ng/mL Serum Total Protein 7.3 (6.3-8.2) g/dL Albumin 4.4 (3.5-5.0) g/dL TSH 3rd Generation 1.175 (0.470-4.680) mIU/L 09/03/23 09/03/23 Range/Units 19:20 19:10 WBC (4.0-10.5) x10^3/uL RBC (4.1-5.4) x10^6/uL Hgb (12.0-16.0) g/dL Hct (35-47) % MCV (78-100) fL MCH (26-32) pg MCHC (32-36) g/dL RDW (11.5-14.0) % Plt Count (150-450) x10^3/uL MPV (7.5-11.0) fL Gran % (36.0-66.0) % Immature Gran % (Auto) (0.00-0.4) % Nucleat RBC Rel Count (0.00-0.1) % Eos # (Auto) (0-0.5) x10^3/uL Immature Gran # (Auto) (0.00-0.03) x10^3u/L Absolute Lymphs (auto) (1.0-4.6) x10^3/uL Absolute Monos (auto) (0.0-1.3) x10^3/uL Absolute Nucleated RBC (0.00-0.01) x10^3u/L Lymphocytes % (24.0-44.0) % Monocytes % (0.0-12.0) % Eosinophils % (0.00-5.0) % Basophils % (0.0-0.4) % Absolute Granulocytes (1.4-6.9) x10^3/uL Basophils # (0-0.4) x10^3/uL Sodium (135-145) mmol/L Potassium (3.5-5.1) mmol/L Chloride (98-107) mmol/L Carbon Dioxide (22-30) mmol/L Anion Gap (5-15) MEQ/L BUN (7-17) mg/dL Creatinine (0.52-1.04) mg/dL Estimated GFR ML/MIN Glucose (74-106) mg/dL Lactic Acid 1.2 (0.4-2.0) Calcium (8.4-10.2) mg/dL Magnesium (1.6-2.3) mg/dL Total Bilirubin (0.2-1.3) mg/dL AST (14-36) U/L ALT (0-35) U/L Alkaline Phosphatase (38-126) U/L Troponin I < 0.012 (0.000-0.033) ng/mL Serum Total Protein (6.3-8.2) g/dL Albumin (3.5-5.0) g/dL TSH 3rd Generation (0.470-4.680) mIU/L - Progress Progress: improved Air Movement: good Progress Note: 09/03/23 19:38 On exam patient is doing very well with no complaints, but blood pressure was elevated in the 200s over 120s on arrival it is now at 177/100. Her EKG shows some ST depression in the lateral leads that is new from her EKG on 08/31/2023. These changes are consistent with ST depression versus left ventricular strain. Laboratory evaluation was ordered including a troponin at this time. I am going to repeat this EKG to see if finding is consistent. Repeat EKG no longer showed ST changes and was comparable to EKG from 08/31/2023. Patient continues to have no symptoms. Intermittent IV Lasix, labetalol, enalaprilat and hydrochlorothiazide. Blood pressure came down to 135/80. Laboratory evaluation was within normal limits with no significant abnormalities. I did send the patient home with a prescription for chlo rthalidone 25 mg daily and advised her to increase her enalapril to 10 mg daily for which I recommended splitting that up into a twice a day dosing at this time. She will follow-up with her PCP in the next week and a half. Blood Culture(s) Obtained: No Antibiotics given: No Counseled pt/family regarding: lab results, diagnosis, need for follow-up Medical Desision Making - Diagnostic Testing Diagnostic test were ordered, analyzed, and reviewed by me: Yes Radiological Interpretation: Interpreted by me - Risk of complications The pt has a mod risk of morbidity or mortality based on: Need for prescription drug management - Departure Departure Disposition: Home Clinical Impression: Hypertension, uncontrolled, HTN (hypertension) Condition: Good Critical Care Time: No Referrals: KAMILLA THOMPSON, GIANLUCA [Primary Care Provider] - Follow up/PCP as directed Instructions: Malignant Hypertension (DC) Additional Instructions: Patient advised to increase enalapril dose to 5 mg twice daily along with adding chlorthalidone 25 mg once daily. She has appointment scheduled with Farhana Thompson on 09/14/2023. Prescriptions: Chlorthalidone 25 mg PO DAILY #30 tablet
[2023-09-03 19:28] LABS: Absolute Neutrophil Ct (ANC) 2.34 x10^3/uL (1.4-6.9); BASOPHIL % 0.6 % (0.0-0.4); Basophil (Absolute #) 0.03 x10^3/uL (0-0.4); Eosinophil % 3.9 % (0.00-5.0); Hematocrit 40.4 % (35-47); Hemoglobin 13.4 g/dL (12.0-16.0); Lymphocyte (Absolute #) 2.08 x10^3/uL (1.0-4.6); Lymphocytes % 40.5 % (24.0-44.0); Mean Cell Volume 88.2 fL (78-100); Mean Corpuscular Hemoglobin 29.3 pg (26-32); Mean Corpuscular Hgb Concent. 33.2 g/dL (32-36); Mean Platelet Volume 9.9 fL (7.5-11.0); Monocyte (Absolute #) 0.49 x10^3/uL (0.0-1.3); Monocytes % 9.5 % (0.0-12.0); Neutrophil % 45.5 % (36.0-66.0); Platelet Count 266 x10^3/uL (150-450); Red Blood Count 4.58 x10^6/uL (4.1-5.4); Red Cell Distribution Width 13.3 % (11.5-14.0); White Blood Count 5.1 x10^3/uL (4.0-10.5)
[2023-09-03] MEDS ORDERED: Lasix 40 MG/4 ML ONE (19:32)
[2023-09-03] MEDS ORDERED: ENALAPRILAT 2.5 MG INJECTION IV ONE (19:32)
[2023-09-03] MEDS: ENALAPRILAT 2.5 MG INJECTION IV ONE (19:34)
[2023-09-03] MEDS: Lasix 40 MG/4 ML IV ONE (19:36)
[2023-09-03 19:59] LABS: ALBUMIN 4.4 g/dL (3.5-5.0); ANION GAP 11.3 MEQ/L (5-15); BILIRUBIN,TOTAL 0.5 mg/dL (0.2-1.3); Calcium 9.3 mg/dL (8.4-10.2); Creatinine 1 0.75 mg/dL (0.52-1.04); EST GLOMERULAR FILTRATION RATE 77.5 ML/MIN; MAGNESIUM 2.2 mg/dL (1.6-2.3); Potassium 4.5 mmol/L (3.5-5.1); Total Protein 7.3 g/dL (6.3-8.2)
[2023-09-03] MEDS ORDERED: TRANDATE 100 MG/20 ML MDV FOR DRIP IV PRN (19:59)
[2023-09-03] MEDS ORDERED: TRANDATE 20 MG/4 ML SYRINGE IV ONE (20:03)
[2023-09-03] MEDS: TRANDATE 20 MG/4 ML SYRINGE IV ONE (20:17)
[2023-09-03] MEDS: CHLORTHALIDONE PO ONE (20:25)
[2023-09-03] MEDS: hydroDIURIL 25 MG PO ONE (20:33)
[2023-09-03 21:56] VITALS: BP 146/75; PULSE 75; RESP 18
[2023-09-03 23:42] VITALS: O2SAT 95
== END 2023-09-03 21:57 | disposition home or self-care (01) ==
LOC: ED 18:44
DX: I10 Essential (primary) hypertension (principal); Z79.899 Other long term (current) drug therapy
CPT/HCPCS: 36000; 36415; 80053; 83605; 83735; 84443; 84484; 85025; 93005; 93041; 96374; 96375; 99284; J1940; A9270-GY